=== PATIENT | female | born 1995 | race Two or more races ===

== ENCOUNTER 2022-03-31 12:00 | Inpatient (IN) | payer OTHER ==
[~2022-03-31] VITALS: Ht 152.4 cm; Wt 135.2 kg
[2022-03-31] MEDS ORDERED: PRENATAL + DHA1 EAC1 PO (13:18)
== END 2022-04-09 12:33 | disposition home or self-care (01) | DRG 788 ==
LOC: OB/GYN 12:00 → LDR 12:00 → OB/GYN 20:10
PROVIDERS: ADMIT Specialist; ATTEND Specialist
PROC: 4A1HXCZ Monitoring of Products of Conception, Cardiac Rate, External Approach (ICD-10-PCS; 2022-03-31)
PROC: 10D00Z1 Extraction of Products of Conception, Low, Open Approach (ICD-10-PCS; principal; 2022-03-31 16:00)
PROC: B246ZZZ Ultrasonography of Right and Left Heart (ICD-10-PCS; 2022-04-04)
PROC: B020ZZZ Computerized Tomography (CT Scan) of Brain (ICD-10-PCS; 2022-04-06)
DX: O14.14 Severe pre-eclampsia complicating childbirth (principal); O14.13 Severe pre-eclampsia, third trimester; O29.43 Spinal and epidural anesthesia induced headache during pregnancy, third trimester; G97.1 Other reaction to spinal and lumbar puncture; Z3A.37 37 weeks gestation of pregnancy; Z37.0 Single live birth; Z20.822 Contact with and (suspected) exposure to COVID-19